=== PATIENT | male | born 1965 | race Caucasian/White ===

== ENCOUNTER → 2019-03-23 | Outpatient (CLI) | payer OTHER ==
[~2019-03-23] MED LIST: GASTROGRAFIN SOLUTION 30ML (Q9963) As Ordered ONE; TRAM50TA2 PO
--- NOTE | 2019-03-23 16:51 | REP ---
Clinical: Inguinal hernia. Scrotal contusion. Technique: Axial noncontrast images of the pelvis with coronal and sagittal re-formations. Comparison: 06/04/2015. Findings: The patient is noted to be status post left inguinal hernia repair. No inguinal hernia identified. The scrotum appears relatively normal by CT evaluation. The surrounding soft tissues of the groin are unremarkable. The surrounding musculoskeletal structures are intact, symmetric and normal. Visualized portions of the small large bowel are grossly unremarkable with a normal terminal ileum and appendix identified in the right lower quadrant. Bladder is partially collapsed. Prostate is normal. No pelvic fluid. No obvious adenopathy. Impression: Evidence for prior left inguinal repair. Normal appearance to the scrotum by CT evaluation. Essentially normal noncontrast CT of the pelvis. Electronically Signed by Colby Gray MD 03/23/2019 04:43 P
== END ==
LOC: M RAD 14:43
PROVIDERS: ATTEND Urology
DX: K40.91 Unilateral inguinal hernia, without obstruction or gangrene, recurrent (principal)
CPT/HCPCS: 72193; Q9963

== ENCOUNTER → 2019-09-29 | Outpatient (CLI) | payer OTHER ==
[~2019-09-29] MED LIST changes: -GASTROGRAFIN SOLUTION 30ML (Q9963) As Ordered ONE
--- NOTE | 2019-09-29 15:04 | REP ---
Clinical: Chronic testicular pain and swelling. Technique: Brewster scale and color Doppler evaluation using linear and curved array transducer with color Doppler evaluation. Findings: The testicles and epididymi are relatively normal in contour, size, echogenicity, vascularity and overall appearance. There is no evidence for intratesticular mass lesion, infectious/inflammatory process, with torsion. No obvious varicoceles. Trace hydroceles noted. There is mild prominence to the left spermatic cord which is of uncertain significance or etiology and may represent chronic change. No associated hyperemia or abnormality otherwise noted. Right testicle measures 3.8 x 2.1 x 2.8 cm cm. Left testicle measures 4.0 x 2.0 x 3.0 cm cm. Impression: Essentially normal scrotal ultrasound. Slight prominence to the left spermatic cord of uncertain clinical significance. Electronically Signed by Colby Gray MD 09/29/2019 02:56 P
== END ==
LOC: M RAD 13:56
PROVIDERS: ATTEND Nurse Practitioner Women's Health
DX: N50.819 Testicular pain, unspecified (principal)

== ENCOUNTER → 2019-10-13 | Outpatient (CLI) | payer OTHER ==
--- NOTE | 2019-10-13 11:26 | REP ---
MRI lumbar spine: 10/13/2019. Indication: Low back pain. Comparison: None. Technique: Multiplanar short and long TR sequences of the lumbar spine were performed without IV Gadolinium. Findings: Very minimal anterolisthesis of L4 on L5 is present secondary to facet arthropathy. There is congenital narrowing of the spinal canal extending from L2-L5. Endplate degenerative signal changes are present most pronounced within the superior endplate of L5. Small focal area of fatty marrow is present within L2. No worrisome marrow or cord signal is present. No significant paraspinal soft tissue abnormalities are detected. L1/L2: Mild diffuse disc bulge and bilateral facet arthropathy are present with mild spinal canal and neural foraminal narrowing. L2/L3: Diffuse disc bulge and bilateral facet arthropathy are present with moderate bilateral recess and left neural foraminal narrowing. L3/L4: Diffuse disc and spur complex and bilateral facet arthropathy are present with severe right greater than left recess narrowing. There is moderate to severe right and moderate left neural foraminal narrowing. L4/L5: Diffuse disc bulge and right greater than left facet arthropathy are present with severe right greater than left recess narrowing. Moderate bilateral neural foraminal narrowing is present. L5/S1: There is no focal disc herniation or significant spinal canal / neural foraminal narrowing. 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 There is severe recess narrowing at L3/L4 and L4/L5 as described. Electronically Signed by Dennis Beckwith DO 10/13/2019 11:18 A
== END ==
LOC: M PLARAD 07:49
PROVIDERS: ATTEND Nurse Practitioner Family
DX: M51.26 Other intervertebral disc displacement, lumbar region (principal); M54.16 Radiculopathy, lumbar region; M12.9 Arthropathy, unspecified; M25.78 Osteophyte, vertebrae

== ENCOUNTER → 2022-12-30 | Outpatient (CLI) | payer OTHER | LOC: M SLEEP HO 12-25 11:12 | PROVIDERS: ATTEND Family Medicine | DX: R06.81 Apnea, not elsewhere classified (principal) ==

== ENCOUNTER → 2023-11-19 | Outpatient (CLI) | payer OTHER | LOC: M PAIN 13:00 | PROVIDERS: ATTEND Nurse Practitioner Family | DX: G57.92 Unspecified mononeuropathy of left lower limb (principal); I10 Essential (primary) hypertension; G89.29 Other chronic pain; F17.200 Nicotine dependence, unspecified, uncomplicated; Z79.1 Long term (current) use of non-steroidal anti-inflammatories (NSAID); Z79.899 Other long term (current) drug therapy; Z88.8 Allergy status to other drugs, medicaments and biological substances; N50.82 Scrotal pain ==

== ENCOUNTER → 2023-12-31 | Outpatient (CLI) | payer OTHER ==
[~2023-12-31] MED LIST changes: +LIDOCAINE 1% SDV 30ML VIAL As Ordered ONE; +TRIAMCINOLONE ACETONIDE SUSP 40MG/ML 1ML VIAL As Ordered ONE; +diazePAM 5MG TABLET As Ordered ONE; +oxyCODONE 5MG TAB As Ordered ONE
== END ==
LOC: M PAIN 13:00
PROVIDERS: ATTEND Anesthesiology
DX: G57.92 Unspecified mononeuropathy of left lower limb (principal); G89.29 Other chronic pain; I10 Essential (primary) hypertension; F17.200 Nicotine dependence, unspecified, uncomplicated; Z79.1 Long term (current) use of non-steroidal anti-inflammatories (NSAID); Z79.899 Other long term (current) drug therapy; Z88.8 Allergy status to other drugs, medicaments and biological substances
CPT/HCPCS: 64425; J0665; J3301

== ENCOUNTER → 2024-02-09 | Outpatient (CLI) | payer OTHER ==
[~2024-02-09] MED LIST changes: -LIDOCAINE 1% SDV 30ML VIAL As Ordered ONE; -TRIAMCINOLONE ACETONIDE SUSP 40MG/ML 1ML VIAL As Ordered ONE; -diazePAM 5MG TABLET As Ordered ONE; -oxyCODONE 5MG TAB As Ordered ONE
== END ==
LOC: M PAIN 13:45
PROVIDERS: ATTEND Anesthesiology
DX: N50.812 Left testicular pain (principal); G58.8 Other specified mononeuropathies; I10 Essential (primary) hypertension; G89.29 Other chronic pain; F17.200 Nicotine dependence, unspecified, uncomplicated; Z79.1 Long term (current) use of non-steroidal anti-inflammatories (NSAID); Z79.899 Other long term (current) drug therapy; Z88.8 Allergy status to other drugs, medicaments and biological substances